=== PATIENT | male | born 1985 | race Caucasian/White ===

== ENCOUNTER → 2023-01-14 | Emergency (ER) | payer OTHER ==
[~2023-01-14] VITALS: Ht 190.5 cm; Wt 129.7 kg
[~2023-01-14] MED LIST: DICLOFENAC POTA50 MG PO; ORPHENADRINE C100 MG PO
== END | disposition home or self-care (01) ==
LOC: ER 11:35
DX: M51.26 Other intervertebral disc displacement, lumbar region (principal); M54.9 Dorsalgia, unspecified